=== PATIENT | female | born 1945 | race Caucasian/White ===

== ENCOUNTER 2017-01-22 13:31 | Emergency (ER) | payer OTHER ==
[~2017-01-22] VITALS: Ht 162.6 cm; Wt 99.8 kg
--- NOTE | ~2017-01-22 | EKG ---
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
[2017-01-22 14:32] LABS: ABSOLUTE NEUTROPHILS 3.5 thou/uL (1.4-8.2); BASOPHILS 1.2 % (0.0-2.0); EOSINOPHILS 4.7 % (0.0-3.0); HEMATOCRIT 38.7 % (37.0-47.0); HEMOGLOBIN 13.9 gm/dL (12.0-15.0); LYMPHOCYTES 43.1 % (24.0-44.0); MCH 30.8 pg (26.0-34.0); MCV 85.5 fL (80.0-100.0); PLATELET COUNT 317 thou/uL (150-400); RBC 4.52 mil/uL (4.20-5.00); WBC 8.7 thou/uL (4.0-11.0)
[2017-01-22 14:36] LABS: MANUAL DIFF NO
[2017-01-22 15:00] LABS: ALBUMIN 3.8 g/dL (3.4-5.0); ALKALINE PHOSPHATASE 71 U/L (46-116); ANION GAP 9 mmol/L (7-16); BUN 7 mg/dL (7-18); CALCIUM 8.8 mg/dL (8.5-10.1); CHLORIDE 105 mmol/L (98-107); CO2 29 mmol/L (21-32); CREATININE 0.6 mg/dL (0.6-1.0); GLUCOSE 80 mg/dL (74-106); MAGNESIUM 1.8 mg/dL (1.8-2.4); POTASSIUM 3.1 mmol/L (3.5-5.1); SGOT 23 U/L (15-37); SGPT 36 U/L (30-65); SODIUM 143 mmol/L (136-145); TOTAL BILIRUBIN 0.6 mg/dL (<0.1-1.0); TOTAL PROTEIN 7.7 g/dL (6.4-8.2); TROPONIN-I < 0.04 ng/mL (<0.04-0.07)
[2017-01-22] MEDS ORDERED: ZYRTEC10 M4 PO (18:14)
[2017-01-22] MEDS ORDERED: VENTOLIN HFA 1818 GM INH (18:14)
[2017-01-22 18:59] VITALS: BP 149/66
== END 2017-01-22 20:48 | disposition home or self-care (01) ==
LOC: ER 13:31
PROVIDERS: Emergency Medicine
DX: R07.9 Chest pain, unspecified (principal); J34.2 Deviated nasal septum; Z90.81 Acquired absence of spleen; Z90.710 Acquired absence of both cervix and uterus; Z85.3 Personal history of malignant neoplasm of breast; Z92.21 Personal history of antineoplastic chemotherapy; Z88.2 Allergy status to sulfonamides; Z91.041 Radiographic dye allergy status

== ENCOUNTER → 2020-03-04 | Outpatient (CLI) | payer OTHER ==
[~2020-03-04] MED LIST: ADVAIR HFA 230M12 GM INH; ASPIR 8181 MG PO; CETIRIZINE HCL5 MG PO; KLOR-CON 1010 MEQ PO; LASIX 20 MG TAB20 MG PO; MOBIC15 MG PO; MULTIVITAMINS1 EAC7 PO; NORCO 5-325 TA1 EACH PO; OMEPRAZOLE40 MG PO; PRIMIDONE50 MG PO; PROPRANOLOL 1010 MG PO; TIZANIDINE HCL 22 M1 PO; VENTOLIN HFA 1818 GM INH; VITAMINC500 PO; XANAX 0.25 MG0.25 MG PO; ZYRTEC10 M4 PO
== END ==
LOC: RAD 12:54
DX: J45.40 Moderate persistent asthma, uncomplicated (principal); M47.814 Spondylosis without myelopathy or radiculopathy, thoracic region

== ENCOUNTER → 2021-03-04 | Outpatient (CLI) | payer OTHER | LOC: SJCVCIMAG 07:27 | PROVIDERS: ATTEND Internal Medicine Cardiovascular Disease | DX: I08.0 Rheumatic disorders of both mitral and aortic valves (principal); I49.3 Ventricular premature depolarization; I45.10 Unspecified right bundle-branch block; R06.00 Dyspnea, unspecified; I11.9 Hypertensive heart disease without heart failure; I77.819 Aortic ectasia, unspecified site; R60.9 Edema, unspecified; M19.90 Unspecified osteoarthritis, unspecified site; K21.9 Gastro-esophageal reflux disease without esophagitis; E03.9 Hypothyroidism, unspecified; Z90.710 Acquired absence of both cervix and uterus; Z98.890 Other specified postprocedural states; Z88.2 Allergy status to sulfonamides; Z88.8 Allergy status to other drugs, medicaments and biological substances; Z79.82 Long term (current) use of aspirin; Z79.899 Other long term (current) drug therapy; Z82.49 Family history of ischemic heart disease and other diseases of the circulatory system ==

== ENCOUNTER → 2021-10-20 | Outpatient (CLI) | payer OTHER | LOC: HYPER 15:17 | PROVIDERS: ATTEND Emergency Medicine | DX: L89.893 Pressure ulcer of other site, stage 3 (principal); S90.811A Abrasion, right foot, initial encounter; L84 Corns and callosities; I73.89 Other specified peripheral vascular diseases; I87.2 Venous insufficiency (chronic) (peripheral); I50.9 Heart failure, unspecified; J45.909 Unspecified asthma, uncomplicated; K21.9 Gastro-esophageal reflux disease without esophagitis; Z79.82 Long term (current) use of aspirin; Z90.710 Acquired absence of both cervix and uterus; Z90.49 Acquired absence of other specified parts of digestive tract; Z85.3 Personal history of malignant neoplasm of breast; F41.9 Anxiety disorder, unspecified; X58.XXXA Exposure to other specified factors, initial encounter; Y93.89 Activity, other specified; Y92.89 Other specified places as the place of occurrence of the external cause; Y99.8 Other external cause status ==

== ENCOUNTER → 2021-10-24 | Outpatient (CLI) | payer OTHER | LOC: SJCVCIMAG 12:00 | PROVIDERS: ATTEND Internal Medicine Cardiovascular Disease | DX: I44.0 Atrioventricular block, first degree (principal); R94.31 Abnormal electrocardiogram [ECG] [EKG]; R06.00 Dyspnea, unspecified; I10 Essential (primary) hypertension; R60.9 Edema, unspecified; I73.9 Peripheral vascular disease, unspecified; M19.90 Unspecified osteoarthritis, unspecified site; J45.909 Unspecified asthma, uncomplicated; E53.8 Deficiency of other specified B group vitamins; K21.9 Gastro-esophageal reflux disease without esophagitis; E78.5 Hyperlipidemia, unspecified; E03.9 Hypothyroidism, unspecified; E83.52 Hypercalcemia; R91.1 Solitary pulmonary nodule; I89.0 Lymphedema, not elsewhere classified; I45.10 Unspecified right bundle-branch block; Z79.899 Other long term (current) drug therapy; Z88.2 Allergy status to sulfonamides; Z88.8 Allergy status to other drugs, medicaments and biological substances ==

== ENCOUNTER → 2021-10-27 | Outpatient (CLI) | payer OTHER | LOC: HYPER 14:03 | PROVIDERS: ATTEND Emergency Medicine | DX: L89.893 Pressure ulcer of other site, stage 3 (principal); S90.811D Abrasion, right foot, subsequent encounter; L84 Corns and callosities; I73.89 Other specified peripheral vascular diseases; I87.2 Venous insufficiency (chronic) (peripheral); I50.9 Heart failure, unspecified; J45.909 Unspecified asthma, uncomplicated; K21.9 Gastro-esophageal reflux disease without esophagitis; Z79.82 Long term (current) use of aspirin; Z90.710 Acquired absence of both cervix and uterus; Z90.49 Acquired absence of other specified parts of digestive tract; Z85.3 Personal history of malignant neoplasm of breast; F41.9 Anxiety disorder, unspecified; X58.XXXD Exposure to other specified factors, subsequent encounter ==

== ENCOUNTER → 2021-11-10 | Outpatient (CLI) | payer OTHER | LOC: HYPER 11:04 | PROVIDERS: ATTEND Emergency Medicine | DX: L89.893 Pressure ulcer of other site, stage 3 (principal); L84 Corns and callosities; I73.89 Other specified peripheral vascular diseases; I87.2 Venous insufficiency (chronic) (peripheral); I50.9 Heart failure, unspecified; J45.909 Unspecified asthma, uncomplicated; K21.9 Gastro-esophageal reflux disease without esophagitis; Z79.82 Long term (current) use of aspirin; Z90.710 Acquired absence of both cervix and uterus; Z90.49 Acquired absence of other specified parts of digestive tract; Z85.3 Personal history of malignant neoplasm of breast; F41.9 Anxiety disorder, unspecified ==

== ENCOUNTER → 2021-11-24 | Outpatient (CLI) | payer OTHER | LOC: HYPER 09:43 | PROVIDERS: ATTEND Emergency Medicine | DX: L89.893 Pressure ulcer of other site, stage 3 (principal); L84 Corns and callosities; I73.89 Other specified peripheral vascular diseases; I87.2 Venous insufficiency (chronic) (peripheral); I50.9 Heart failure, unspecified; J45.909 Unspecified asthma, uncomplicated; K21.9 Gastro-esophageal reflux disease without esophagitis; F41.9 Anxiety disorder, unspecified; Z79.82 Long term (current) use of aspirin; Z90.710 Acquired absence of both cervix and uterus; Z90.49 Acquired absence of other specified parts of digestive tract; Z85.3 Personal history of malignant neoplasm of breast ==